=== PATIENT | female | born 1960 | race Caucasian/White ===

== ENCOUNTER 2017-02-02 17:20 | Emergency (ER) | payer OTHER ==
[2017-02-02 17:22] VITALS: BP 111/61; PULSE 70; RESP 20; TEMP 98.3; O2SAT 97
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
== END 2017-02-02 18:10 | disposition home or self-care (01) ==
LOC: PHEFT 17:20
DX: S16.1XXA Strain of muscle, fascia and tendon at neck level, initial encounter (principal); G44.209 Tension-type headache, unspecified, not intractable; V89.2XXA Person injured in unspecified motor-vehicle accident, traffic, initial encounter
CPT/HCPCS: 99282